=== PATIENT | female | born 1945 | race Caucasian/White ===

== ENCOUNTER 2017-10-23 17:30 | Emergency (ER) | payer MEDICARE, BC ==
[2017-10-23] MEDS ORDERED: Alum Hydrox/Mag Hydrox/Simeth 15 ML, Lidocaine 2% 15 ML PO ONE ×2 (18:49)
[2017-10-23] MEDS ORDERED: Nitroglycerin 0.4 MG Tab.SL SL ONE (18:51)
--- NOTE | 2017-10-23 18:57 | EDM.PDOC ---
ED HPI GENERAL MEDICAL PROBLEM - General Chief Complaint: Chest Pain Stated Complaint: CHEST PAIN VIA [facility] Time Seen by Provider: 10/23/17 17:45 Source of Information: Reports: Patient History Limitations: Reports: No Limitations - History of Present Illness INITIAL COMMENTS - FREE TEXT/NARRATIVE: pt was struggling at home to put a coveron her paddle boat as she was getting ready to leave for the winter. She developed numbness in the left arm and she had alot of pressure in her chest. She felt mildly sob. She did get sweaty when she had the chest pain. On arrival she had alot of pressure in her chest and she rated it at a 4. Later she rated it at a 5. She had a bp of 90/60. She was given a bolus of fluid and will try the nitro again. She did have nitro in the ambulance 3 sprays with no relief. Onset: Today, Sudden Duration: Hour(s):, Heavy, Other (pt has alot of constant pressure. ) Location: Reports: Chest, Upper Extremity, Left, Other ( She describes numbness in the left arm particularly at the wrist. ) Associated Symptoms: Reports: Chest Pain, Diaphoresis, Shortness of Breath chest Pain Score (Numeric/FACES): 4 - Related Data Allergies Allergy/AdvReac Type Severity Reaction Status Date / Time No Known Allergies Allergy Verified 10/23/17 17:41 Home Meds: Home Meds Aspirin [Low Dose Aspirin EC] 81 mg PO DAILY 10/23/17 [History] Past Medical History [employer] History: Reports: Social & Family History - Tobacco Use Smoking Status *Q: Never Smoker - Caffeine Use Caffeine Use: Reports: Coffee - Recreational Drug Use Recreational Drug Use: No ED ROS GENERAL - Review of Systems Review Of Systems: See Below Constitutional: Reports: No Symptoms HEENT: Reports: No Symptoms Respiratory: Reports: Shortness of Breath Cardiovascular: Reports: Chest Pain, Other ( Pt describes her pain as constant pressure. ) Endocrine: Reports: No Symptoms GI/Abdominal: Reports: Other ( Pt is not belchy. ) : Reports: No Symptoms Musculoskeletal: Reports: No Symptoms Skin: Reports: No Symptoms ED EXAM, GENERAL - Physical Exam Exam: See Below Free Text/Narrative:: pt arrived with chest pain described as a pressure. She has numbness in her left arm. She had the sensation several times to have a bm and she did get up on the commode. She moved from chest pain to back pain between the shoulder blades. Exam Limited By: Other (pt had one period when she answered slowly but later that cleared) General Appearance: Alert, Anxious, Other (pupils equal and reactive) Ears: Normal TMs Nose: Normal Inspection Throat/Mouth: Normal Inspection Head: Atraumatic Neck: Normal Inspection Respiratory/Chest: No Respiratory Distress Cardiovascular: Regular Rate, Rhythm, Other (pt had a normal ekg) GI/Abdominal: Soft, Non-Tender, Other (pt was not distended. ) (Female) Exam: Deferred Rectal (Female) Exam: Deferred Back Exam: Normal Inspection Extremities: Normal Inspection Neurological: Alert, Oriented, Normal Cognition Psychiatric: Normal Affect Skin Exam: Warm Course - Vital Signs Last Recorded V/S: Last Vital Signs Temp 35.7 C 10/23/17 18:59 Pulse 162 H 10/23/17 22:00 Resp 51 H 10/23/17 22:00 BP 65/24 L 10/23/17 22:00 Pulse Ox 91 L 10/23/17 22:00 - Orders/Labs/Meds Labs: Laboratory Tests 10/23/17 10/23/17 10/23/17 Range/Units 18:07 18:07 20:17 WBC 9.2 (4.5-11.0) K/uL RBC 3.97 (3.30-5.50) M/uL Hgb 12.2 (12.0-15.0) g/dL Hct 37.3 (36.0-48.0) % MCV 94 (80-98) fL MCH 31 (27-31) pg MCHC 33 (32-36) % Plt Count 159 (150-400) K/uL Neut % (Auto) 73 H (36-66) % Lymph % (Auto) 19 L (24-44) % Bonner % (Auto) 7 H (2-6) % Eos % (Auto) 1 L (2-4) % Baso % (Auto) 0 (0-1) % Sodium 144 (140-148) mmol/L Potassium 3.6 (3.6-5.2) mmol/L Chloride 107 (100-108) mmol/L Carbon Dioxide 28 (21-32) mmol/L Anion Gap 8.8 (5.0-14.0) mmol/L BUN 16 (7-18) mg/dL Creatinine 0.9 (0.6-1.0) mg/dL Est Cr Clr Drug Dosing 43.37 mL/min Estimated GFR (MDRD) > 60 (>60) Glucose 110 H (74-106) mg/dL Calcium 8.6 (8.5-10.1) mg/dL Total Bilirubin 0.6 (0.2-1.0) mg/dL AST 24 (15-37) U/L ALT 22 (12-78) U/L Alkaline Phosphatase 72 (46-116) U/L Troponin I < 0.017 (0.000-0.056) ng/mL C-Reactive Protein 0.20 (0.0-0.3) mg/dL Total Protein 5.7 L (6.4-8.2) g/dL Albumin 3.3 L (3.4-5.0) g/dL Globulin 2.4 (2.3-3.5) g/dL Albumin/Globulin Ratio 1.4 (1.2-2.2) Meds: Medications Discontinued Medications Generic Name Dose Route Start Last Admin Trade Name Freq PRN Reason Stop Dose Admin Al Hydroxide/Mg Hydroxide 15 0 ml 10/23/17 18:49 10/23/17 18:57 ml/ Lidocaine HCl 15 ml PO 10/23/17 18:50 15 ml ONETIME ONE Administration Epinephrine HCl 1 mg 10/23/17 22:00 Epinephrine 1:10,000 .ROUTE 10/23/17 22:01 .STK-MED ONE Epinephrine HCl 1 mg 10/23/17 22:07 Epinephrine 1:10,000 .ROUTE 10/23/17 22:08 .STK-MED ONE Hydromorphone HCl 0.5 mg 10/23/17 20:34 10/23/17 21:23 Dilaudid IVPUSH 10/23/17 20:35 0.5 mg ONETIME ONE Administration Sodium Chloride 1,000 mls @ 250 mls/hr 10/23/17 19:00 10/23/17 18:57 Normal Saline IV 250 mls/hr ASDIRECTED FREDDY Administration Sodium Chloride 100 mls @ 3 mls/sec 10/23/17 19:45 10/23/17 19:57 Normal Saline IV 3 mls/sec ASDIRECTED FREDDY Administration Sodium Chloride 100 mls @ 3 mls/sec 10/23/17 21:00 Normal Saline IV ASDIRECTED FREDDY Iopamidol 100 ml 10/23/17 19:45 10/23/17 19:57 Isovue-370 (76%) IV 100 ml . DIRECTED FREDDY Administration Iopamidol 100 ml 10/23/17 21:00 Isovue-370 (76%) IV . DIRECTED FREDDY Morphine Sulfate 2 mg 10/23/17 19:25 10/23/17 19:47 Morphine IVPUSH 10/23/17 19:26 2 mg ONETIME ONE Administration Nitroglycerin 0.4 mg 10/23/17 18:51 10/23/17 19:11 Nitrostat SL 10/23/17 18:52 0.4 mg ONETIME ONE Administration Ondansetron HCl 4 mg 10/23/17 20:13 10/23/17 20:23 Zofran IVPUSH 10/23/17 20:14 4 mg ONETIME ONE Administration Sodium Chloride 10 ml 10/23/17 20:54 Saline Flush FLUSH ASDIRECTED PRN Keep Vein Open - Re-Assessments/Exams Free Text/Narrative Re-Assessment/Exam: 10/23/17 23:32 3:36 angio of the chest showed no PE. There was a concern that there could be a disection of the thoracic aorta. It was reccommended that that she have a cta of the thoracic aorta which was done and it was reported that the aorta had a very extensive disection, A helicopter was called for and ok for transfer was obtained. In the meantime she arrested and because of the extend of her disection this was futile. She was not getting blood supply to her rt carorid and the disection extended to the iliacs. Her ekg was normal. Her tropin was normal. Her other lab work was normal. Resucitation was attempted. She was coded, 2 does of epinephrine was given to the pt. She was bagged and a giovanni tube was inserted. The family came into the room and wished for us to stop the code. Alot of time was taken to explain what a disection is and how difficult it can be to be diagnois without a cat scan. It was also explained that in the lite of the findings repair would be very difficult. 10/24/17 23:16 between the first cat scan of the chest and the cta of the chest [facility] was called and a discussion was held with the cardiovasular surgeon. He stated that he was reluctant to take her and wondered if she should go to [place] where more of the disections are done. he advised me to call him once I had the cta of the thoracic aorta done and he would decide whether she should go to [place] or come to [place]. 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
[2017-10-23] MEDS ORDERED: Sodium Chloride 0.9% 1,000 ML IV SCH (19:00)
[2017-10-23] MEDS ORDERED: Morphine 2 MG/ML Syringe IVPUSH ONE (19:25)
[2017-10-23] MEDS ORDERED: Sodium Chloride 0.9% 100 ML IV SCH ×2 (19:45→21:00)
[2017-10-23] MEDS ORDERED: Iopamidol 755 Mg/ML 100 ML Bottle IV SCH ×2 (19:45→21:00)
[2017-10-23] MEDS ORDERED: Ondansetron 4 MG/2 ML SDV IVPUSH ONE (20:13)
[2017-10-23] MEDS ORDERED: HYDROmorphone 0.5 MG/0.5 ML Syringe IVPUSH ONE (20:34)
[2017-10-23] MEDS ORDERED: Sodium Chloride 0.9% 10 ML Syringe FLUSH PRN (20:54)
[2017-10-23] MEDS ORDERED: EPINEPHrine 1:10,000 1 MG/10 ML Syringe ONE ×2 (22:00→22:07)
--- NOTE | 2017-10-24 11:15 | CR ---
Chest 1V Frontal FINDINGS: The heart and vascular structures are normal in appearance. No infiltrates or effusions are demonstrated. The skeletal structures are unremarkable. IMPRESSION: Negative exam.
== END 2017-10-24 07:20 | disposition expired ==
LOC: JP.ED 17:30
DX: I71.01 Dissection of thoracic aorta (principal); I71.00 Dissection of unspecified site of aorta; Z79.82 Long term (current) use of aspirin
CPT/HCPCS: 31500; 36415; 71010; 71275; 74174; 80053; 84484; 85025; 86140; 92950; 93005; 93010; 96374; 96375; 99285; A9270; J0171; J1170; J2270; J2405; J7030; J7040; Q9967